=== PATIENT | female | born 1965 | race Hispanic/Latino ===

== ENCOUNTER 2021-10-31 04:41 | Inpatient (IN) | payer OTHER ==
[2021-10-31] MEDS ORDERED: Metoclopramide HCl 10 MG/2 ML VIAL ONE (05:37)
[2021-10-31] MEDS ORDERED: Midazolam HCl 2 mg/2 ml Vial ONE (05:37)
[2021-10-31 06:34] LABS: ALT (SGPT) 36 U/L (8-55); AST (SGOT) 26 U/L (5-34); Alkaline Phosphatase 38 U/L (40-110); Anion Gap 25 mmol/L (10-20); BUN (Urea Nitrogen) 24 mg/dL (9.8-20.1); Bilirubin, Total 0.8 mg/dL (0.2-1.2); Calc. Creatinine Clearance 0 mL/min (70-130); Calcium 9.9 mg/dL (7.8-10.44); Carbon Dioxide 15 mmol/L (22-29); Chloride 103 mmol/L (98-107); Globulin 3.5 g/dL (2.4-3.5); Glucose 363 mg/dL (70-105); Potassium 3.4 mmol/L (3.5-5.1); Protein, Total 8.5 g/dL (6.0-8.3); Sodium 140 mmol/L (136-145)
[2021-10-31 06:35] LABS: Actual Bicarbonate (HCO3v) 17 mEq/L (22-28); Base Excess -5.9 mEq/L (-2.0 to +3.0); Calcium, Ionized (venous) 1.13 mmol/L (1.16-1.32); Chloride (VBG) 102 mmol/L (98-106); Hemoglobin (Hb) 15.8 g/dL (11.7-16.0); Potassium (VBG) 3.31 mmol/L (3.70-5.30); Puncture Site Other Site; RapidComm Collect By lab tech; Sodium 137.2 mmol/L (133-146)
[2021-10-31] MEDS ORDERED: Magnesium 2 GM/50 ML BAG (IN WATER) ONE (06:45)
[2021-10-31] MEDS ORDERED: INSULIN REGULAR IN 0.9 % NACL 100 UNIT/100 ML BAG ONE (06:45)
[2021-10-31] MEDS ORDERED: Potassium Chloride 20 MEQ TAB ONE (06:45)
[2021-10-31] MEDS ORDERED: NS 0.9% w/ 20 MEQ KCL 1,000 ML ONE (06:57)
[2021-10-31] MEDS ORDERED: Sodium Chloride 0.9% 1,000 ML IV PRN ×4 (07:30)
[2021-10-31] MEDS ORDERED: NS 0.9% w/ 20 MEQ KCL 1,000 ML IV PRN ×2 (07:30)
[2021-10-31] MEDS ORDERED: Electrolyte Replacement Protocol 1 EACH IVPB PRN (07:30)
[2021-10-31] MEDS ORDERED: Dextrose 5 %-0.45 % NaCl 1,000 ML IV PRN (07:30)
[2021-10-31] MEDS ORDERED: Potassium Chloride 20 MEQ TAB PO SCH (08:00)
[2021-10-31] MEDS: INSULIN REGULAR IN 0.9 % NACL 100 UNIT in Premix Bag 1 BAG IVPB SCH (08:17)
[2021-10-31] MEDS ORDERED: Morphine 2 MG/ML VIAL SLOW IVP PRN (08:40)
[2021-10-31] MEDS ORDERED: Morphine 4 MG/ML VIAL SLOW IVP SCH (08:45)
[2021-10-31] MEDS ORDERED: Prevnar 13-Val Conj/PF 0.5 ML SYRINGE IM ONE (08:45)
[2021-10-31 08:58] LABS: Anion Gap 25 mmol/L (10-20); BUN (Urea Nitrogen) 21 mg/dL (9.8-20.1); Calc. Creatinine Clearance 57 mL/min (70-130); Calcium 9.7 mg/dL (7.8-10.44); Carbon Dioxide 14 mmol/L (22-29); Chloride 104 mmol/L (98-107); Glucose 301 mg/dL (70-105); Potassium 4.5 mmol/L (3.5-5.1); Sodium 138 mmol/L (136-145)
[2021-10-31] MEDS: Scopolamine 1.5 mg/72 hour Patch TD SCH (10:06)
[2021-10-31] MEDS: Labetalol HCl 100 MG/20 ML VIAL SLOW IVP PRN (10:42)
[2021-10-31] MEDS: D5 1/2 NS w/20 mEq KCL 1,000 ML IV PRN ×3 (11:23→23:14)
[2021-10-31] MEDS ORDERED: Ondansetron PF 4 MG/2 ML Vial IVP PRN ×2 (11:58→12:04)
[2021-10-31] MEDS ORDERED: Acetaminophen 325 MG TAB PO PRN (11:58)
[2021-10-31 12:39] LABS: Anion Gap 20 mmol/L (10-20); BUN (Urea Nitrogen) 18 mg/dL (9.8-20.1); Calc. Creatinine Clearance 63 mL/min (70-130); Calcium 9.4 mg/dL (7.8-10.44); Carbon Dioxide 17 mmol/L (22-29); Chloride 108 mmol/L (98-107); Glucose 181 mg/dL (70-105); Potassium 5.1 mmol/L (3.5-5.1); Sodium 140 mmol/L (136-145)
[2021-10-31] MEDS: cefTRIAXone\\ROCEPHIN 1 GM in Sodium Chloride 0.9% 100 ML IVPB SCH (14:08)
[2021-10-31] MEDS: Metoclopramide HCl 10 MG/2 ML VIAL IVP SCH ×2 (15:55→21:39)
[2021-10-31] MEDS: Morphine 4 MG/ML VIAL SLOW IVP PRN ×2 (15:56→20:29)
[2021-10-31 16:42] LABS: Anion Gap 16 mmol/L (10-20); BUN (Urea Nitrogen) 16 mg/dL (9.8-20.1); Calc. Creatinine Clearance 72 mL/min (70-130); Calcium 9.1 mg/dL (7.8-10.44); Carbon Dioxide 17 mmol/L (22-29); Chloride 107 mmol/L (98-107); Glucose 182 mg/dL (70-105); Sodium 136 mmol/L (136-145)
[2021-10-31 20:44] LABS: Anion Gap 14 mmol/L (10-20); BUN (Urea Nitrogen) 13 mg/dL (9.8-20.1); Calc. Creatinine Clearance 78 mL/min (70-130); Calcium 9.2 mg/dL (7.8-10.44); Carbon Dioxide 19 mmol/L (22-29); Chloride 107 mmol/L (98-107); Glucose 100 mg/dL (70-105); Potassium 4.2 mmol/L (3.5-5.1); Sodium 136 mmol/L (136-145)
[2021-11-01] MEDS: Morphine 4 MG/ML VIAL SLOW IVP PRN ×5 (00:49→18:51)
[2021-11-01 01:28] LABS: Anion Gap 13 mmol/L (10-20); BUN (Urea Nitrogen) 10 mg/dL (9.8-20.1); Calc. Creatinine Clearance 78 mL/min (70-130); Calcium 8.8 mg/dL (7.8-10.44); Carbon Dioxide 20 mmol/L (22-29); Chloride 110 mmol/L (98-107); Glucose 100 mg/dL (70-105); Sodium 139 mmol/L (136-145)
[2021-11-01] MEDS ORDERED: Dextrose 50% Abboject 50 ML SYRINGE SLOW IVP PRN (02:04)
[2021-11-01] MEDS ORDERED: Dextrose 5% in Water 1,000 ML IV PRN (02:04)
[2021-11-01] MEDS ORDERED: HumaLOG 300 UNITS/3 ML VIAL SC PRN (02:04)
[2021-11-01] MEDS ORDERED: Sodium Chloride 0.45% 1,000 ML IV SCH (03:00)
[2021-11-01] MEDS: Metoclopramide HCl 10 MG/2 ML VIAL IVP SCH ×4 (04:23→21:44)
[2021-11-01 05:03] LABS: #Neutrophils 7.5 10x3/uL (1.5-8.4); %Basophils 0.2 % (0.0-2.0); %Eosinophils 0.3 % (0.0-6.0); %Lymphocytes 22.4 % (18.0-47.0); %Neutrophils 67.7 % (40.0-75.0); Hemoglobin 12.9 g/dL (12.0-15.5); Mean Corpuscular HGB CONC 34.4 g/dL (32.0-36.0); Mean Corpuscular Hemoglobin 29.5 pg (27.0-33.0); Mean Corpuscular Volume 85.8 fl (81.6-98.3); Mean Platelet Volume 9.5 fl (7.4-10.4); Platelet Count 268 10x3/uL (150-450); Red Blood Cell (RBC) Count 4.37 10x6/uL (3.90-5.03); White Blood Cell (WBC) Count 11.1 10x3/uL (3.5-10.5)
[2021-11-01 05:34] LABS: ALT (SGPT) 30 U/L (8-55); AST (SGOT) 32 U/L (5-34); Albumin 4.1 g/dL (3.5-5.0); Alkaline Phosphatase 27 U/L (40-110); Anion Gap 18 mmol/L (10-20); BUN (Urea Nitrogen) 9 mg/dL (9.8-20.1); Bilirubin, Total 0.6 mg/dL (0.2-1.2); Calc. Creatinine Clearance 76 mL/min (70-130); Carbon Dioxide 17 mmol/L (22-29); Chloride 108 mmol/L (98-107); Globulin 3.1 g/dL (2.4-3.5); Glucose 153 mg/dL (70-105); Magnesium 1.8 mg/dL (1.6-2.6); Phosphorus 2.4 mg/dL (2.3-4.7); Protein, Total 7.2 g/dL (6.0-8.3); Sodium 139 mmol/L (136-145)
[2021-11-01] MEDS ORDERED: 1/2 NS w/KCL 20 mEq 1,000 ML IV SCH (06:00)
[2021-11-01] MEDS ORDERED: Magnesium 2 GM/50 ML(in water) 2 GM in Premix Bag 1 BAG IVPB SCH (06:00)
[2021-11-01] MEDS ORDERED: cefTRIAXone\\ROCEPHIN 1 GM VIAL ONE (06:04)
[2021-11-01] MEDS: D5 1/2 NS w/20 mEq KCL 1,000 ML IV SCH ×5 (06:06→22:29)
[2021-11-01 09:30] LABS: Anion Gap 16 mmol/L (10-20); BUN (Urea Nitrogen) 7 mg/dL (9.8-20.1); Calc. Creatinine Clearance 75 mL/min (70-130); Calcium 9.2 mg/dL (7.8-10.44); Carbon Dioxide 17 mmol/L (22-29); Chloride 110 mmol/L (98-107); Glucose 189 mg/dL (70-105); Potassium 5.2 mmol/L (3.5-5.1); Sodium 138 mmol/L (136-145)
[2021-11-01] MEDS: Enoxaparin Sodium 40 MG/0.4 ML SYRINGE SC SCH (09:38)
[2021-11-01] MEDS ORDERED: Iopamidol 300 61% 100 ML VIAL FS ONE (10:30)
[2021-11-01] MEDS: Dextrose 5 %-0.45 % NaCl 1,000 ML IV PRN ×3 (10:39→21:44)
[2021-11-01] MEDS: cefTRIAXone\\ROCEPHIN 1 GM in Sodium Chloride 0.9% 100 ML IVPB SCH (12:17)
[2021-11-01 13:42] LABS: Anion Gap 15 mmol/L (10-20); BUN (Urea Nitrogen) 7 mg/dL (9.8-20.1); Calc. Creatinine Clearance 79 mL/min (70-130); Calcium 9.1 mg/dL (7.8-10.44); Carbon Dioxide 20 mmol/L (22-29); Chloride 106 mmol/L (98-107); Glucose 205 mg/dL (70-105); Sodium 136 mmol/L (136-145)
[2021-11-01] MEDS: Labetalol HCl 100 MG/20 ML VIAL SLOW IVP PRN (15:04)
[2021-11-01] MEDS ORDERED: diphenhydrAMINE 50 MG/ML VIAL IVP SCH (16:00)
[2021-11-01] MEDS ORDERED: methylPREDNISolone Sod Succ 40 MG VIAL IVP SCH (17:30)
[2021-11-01] MEDS ORDERED: Famotidine/PF 20 mg/2ml Vial SLOW IVP SCH (18:00)
[2021-11-01] MEDS: INSULIN REGULAR IN 0.9 % NACL 100 UNIT in Premix Bag 1 BAG IVPB SCH (18:39)
[2021-11-01] MEDS ORDERED: Insulin Regular 300 UNITS/3 ML VIAL SC SCH (18:45)
[2021-11-01] MEDS ORDERED: Insulin Regular 300 UNITS/3 ML VIAL IVP SCH (18:45)
[2021-11-02] MEDS: Morphine 4 MG/ML VIAL SLOW IVP PRN ×5 (00:17→20:06)
[2021-11-02] MEDS: Dextrose 5 %-0.45 % NaCl 1,000 ML IV PRN ×2 (01:06→05:36)
[2021-11-02] MEDS: D5 1/2 NS w/20 mEq KCL 1,000 ML IV SCH ×4 (03:28→15:08)
[2021-11-02] MEDS: Metoclopramide HCl 10 MG/2 ML VIAL IVP SCH ×4 (04:27→21:07)
[2021-11-02 06:59] LABS: Magnesium 1.9 mg/dL (1.6-2.6)
[2021-11-02 08:42] LABS: Anion Gap 18 mmol/L (10-20); BUN (Urea Nitrogen) 5 mg/dL (9.8-20.1); Calc. Creatinine Clearance 83 mL/min (70-130); Calcium 9.6 mg/dL (7.8-10.44); Carbon Dioxide 17 mmol/L (22-29); Chloride 108 mmol/L (98-107); Glucose 109 mg/dL (70-105); Potassium 4.4 mmol/L (3.5-5.1); Sodium 139 mmol/L (136-145)
[2021-11-02] MEDS: Enoxaparin Sodium 40 MG/0.4 ML SYRINGE SC SCH (09:11)
[2021-11-02] MEDS ORDERED: Magnesium 2 GM/50 ML(in water) 2 GM in Premix Bag 1 BAG IVPB SCH (09:15)
[2021-11-02] MEDS: cefTRIAXone\\ROCEPHIN 1 GM in Sodium Chloride 0.9% 100 ML IVPB SCH (12:11)
[2021-11-02] MEDS: cloNIDine 0.1 MG TAB PO PRN (14:34)
[2021-11-02 15:13] LABS: Anion Gap 15 mmol/L (10-20); BUN (Urea Nitrogen) 4 mg/dL (9.8-20.1); Calc. Creatinine Clearance 82 mL/min (70-130); Calcium 9.2 mg/dL (7.8-10.44); Carbon Dioxide 20 mmol/L (22-29); Chloride 105 mmol/L (98-107); Glucose 153 mg/dL (70-105); Potassium 3.6 mmol/L (3.5-5.1); Sodium 136 mmol/L (136-145)
[2021-11-02] MEDS ORDERED: diphenhydrAMINE 25 MG CAP PO PRN (16:22)
[2021-11-02] MEDS ORDERED: Dextrose 5% in Water 1,000 ML IV PRN (16:24)
[2021-11-02] MEDS ORDERED: Dextrose 50% Abboject 50 ML SYRINGE SLOW IVP PRN (16:24)
[2021-11-02] MEDS ORDERED: Lantus 1000 UNITS/10 ML VIAL SC SCH (16:27)
[2021-11-02] MEDS: HumaLOG 300 UNITS/3 ML VIAL SC PRN (21:16)
[2021-11-03] MEDS: cloNIDine 0.1 MG TAB PO PRN (00:12)
[2021-11-03] MEDS: Morphine 4 MG/ML VIAL SLOW IVP PRN ×2 (01:09→08:23)
[2021-11-03] MEDS: Metoclopramide HCl 10 MG/2 ML VIAL IVP SCH ×4 (04:10→20:18)
[2021-11-03 04:46] LABS: Anion Gap 17 mmol/L (10-20); BUN (Urea Nitrogen) 5 mg/dL (9.8-20.1); Calc. Creatinine Clearance 78 mL/min (70-130); Carbon Dioxide 18 mmol/L (22-29); Chloride 108 mmol/L (98-107); Glucose 191 mg/dL (70-105); Magnesium 1.8 mg/dL (1.6-2.6); Potassium 4.8 mmol/L (3.5-5.1); Sodium 138 mmol/L (136-145)
[2021-11-03] MEDS ORDERED: Magnesium 2 GM/50 ML(in water) 2 GM in Premix Bag 1 BAG IVPB SCH (05:30)
[2021-11-03] MEDS: Carvedilol 25 MG TAB PO SCH (05:53)
[2021-11-03] MEDS: HumaLOG 300 UNITS/3 ML VIAL SC PRN ×3 (08:08→17:56)
[2021-11-03] MEDS: Enoxaparin Sodium 40 MG/0.4 ML SYRINGE SC SCH (08:10)
[2021-11-03] MEDS: Lantus 1000 UNITS/10 ML VIAL SC SCH ×2 (08:10→20:20)
[2021-11-03] MEDS ORDERED: Atorvastatin Calcium 40 MG TAB PO SCH (09:00)
[2021-11-03] MEDS: Scopolamine 1.5 mg/72 hour Patch TD SCH (10:29)
[2021-11-03] MEDS: cefTRIAXone\\ROCEPHIN 1 GM in Sodium Chloride 0.9% 100 ML IVPB SCH (11:26)
[2021-11-03] MEDS: HYDROcodone/Acetaminophen 5/325 mg Tablet PO PRN ×2 (14:31→17:54)
[2021-11-03] MEDS: Labetalol HCl 100 MG/20 ML VIAL SLOW IVP PRN (20:31)
[2021-11-04] MEDS: HYDROcodone/Acetaminophen 5/325 mg Tablet PO PRN ×5 (00:36→21:18)
[2021-11-04] MEDS: cloNIDine 0.1 MG TAB PO PRN (03:57)
[2021-11-04] MEDS: Metoclopramide HCl 10 MG/2 ML VIAL IVP SCH ×4 (04:00→21:10)
[2021-11-04 05:26] LABS: Anion Gap 16 mmol/L (10-20); BUN (Urea Nitrogen) 8 mg/dL (9.8-20.1); Calc. Creatinine Clearance 80 mL/min (70-130); Calcium 9.3 mg/dL (7.8-10.44); Carbon Dioxide 22 mmol/L (22-29); Chloride 105 mmol/L (98-107); Glucose 145 mg/dL (70-105); Magnesium 1.8 mg/dL (1.6-2.6); Potassium 3.7 mmol/L (3.5-5.1); Sodium 139 mmol/L (136-145)
[2021-11-04] MEDS ORDERED: Magnesium 2 GM/50 ML(in water) 2 GM in Premix Bag 1 BAG IVPB SCH (05:45)
[2021-11-04] MEDS: Enoxaparin Sodium 40 MG/0.4 ML SYRINGE SC SCH (09:13)
[2021-11-04] MEDS: Carvedilol 25 MG TAB PO SCH (09:13)
[2021-11-04] MEDS: Lantus 1000 UNITS/10 ML VIAL SC SCH ×2 (09:14→21:11)
[2021-11-04] MEDS: cefTRIAXone\\ROCEPHIN 1 GM in Sodium Chloride 0.9% 100 ML IVPB SCH (13:12)
[2021-11-04] MEDS: HumaLOG 300 UNITS/3 ML VIAL SC PRN (13:13)
[2021-11-04] MEDS: Losartan Potassium 50 MG TAB PO SCH (16:39)
[2021-11-04] MEDS ORDERED: Bisacodyl 5 MG TAB PO SCH (17:45)
[2021-11-04] MEDS: Atorvastatin Calcium 40 MG TAB PO SCH (21:10)
[2021-11-05] MEDS: HYDROcodone/Acetaminophen 5/325 mg Tablet PO PRN ×4 (04:27→22:33)
[2021-11-05] MEDS: Metoclopramide HCl 10 MG/2 ML VIAL IVP SCH ×2 (04:27→11:13)
[2021-11-05] MEDS: cloNIDine 0.1 MG TAB PO PRN (04:36)
[2021-11-05 04:47] LABS: #Eosinphils 0.3 10x3/uL (0.0-0.5); #Monocytes 0.5 10x3/uL (0.0-1.1); #Neutrophils 3.2 10x3/uL (1.5-8.4); %Basophils 0.3 % (0.0-2.0); %Eosinophils 3.7 % (0.0-6.0); %Lymphocytes 40.6 % (18.0-47.0); %Monocytes 7.5 % (0.0-10.0); %Neutrophils 47.8 % (40.0-75.0); Hemoglobin 13.1 g/dL (12.0-15.5); Mean Corpuscular HGB CONC 35.5 g/dL (32.0-36.0); Mean Corpuscular Volume 81.8 fl (81.6-98.3); Mean Platelet Volume 8.9 fl (7.4-10.4); Platelet Count 304 10x3/uL (150-450); RBC Distribution Width 12.2 % (11.5-14.5); Red Blood Cell (RBC) Count 4.51 10x6/uL (3.90-5.03); White Blood Cell (WBC) Count 6.7 10x3/uL (3.5-10.5)
[2021-11-05 05:03] LABS: Anion Gap 18 mmol/L (10-20); BUN (Urea Nitrogen) 10 mg/dL (9.8-20.1); Calc. Creatinine Clearance 76 mL/min (70-130); Calcium 9.5 mg/dL (7.8-10.44); Carbon Dioxide 21 mmol/L (22-29); Chloride 104 mmol/L (98-107); Glucose 150 mg/dL (70-105); Potassium 3.7 mmol/L (3.5-5.1); Sodium 139 mmol/L (136-145)
[2021-11-05] MEDS: Carvedilol 25 MG TAB PO SCH (08:36)
[2021-11-05] MEDS: Enoxaparin Sodium 40 MG/0.4 ML SYRINGE SC SCH (08:47)
[2021-11-05] MEDS: Lantus 1000 UNITS/10 ML VIAL SC SCH (10:16)
[2021-11-05] MEDS: HumaLOG 300 UNITS/3 ML VIAL SC PRN ×3 (10:18→20:54)
[2021-11-05] MEDS ORDERED: ALPRAZolam 0.25 MG TAB PO SCH ×2 (12:15→22:30)
[2021-11-05] MEDS: cefTRIAXone\\ROCEPHIN 1 GM in Sodium Chloride 0.9% 100 ML IVPB SCH (12:41)
[2021-11-05 13:40] LABS: Hemoglobin A1c 10.3 % (4.0-6.0)
[2021-11-05] MEDS ORDERED: Dextrose 10% in Water 250 ML IVPB SCH (15:45)
[2021-11-05 16:07] LABS: Actual Bicarbonate (HCO3a) 23.5 mEq/L (22-28); Base Excess (BEa) -1.9 mEq/L (-2.0 to +3.0); CO2 Tension 42.6 mmHg (35.0-45.0); Calcium, Ionized (arterial) 1.24 mmol/L (1.12-1.30); Carboxyhemoglobin (COHb) 0.3 gm% (0.0-3.0); O2 Tension (PaO2), arterial 446.9 mmHg (80.0-100.0); Potassium - ABG Lab 2.9 mmol/L (3.70-5.30); Puncture Site LRA; pH, Arterial 7.36 (7.35-7.45)
[2021-11-05 17:20] LABS: Anion Gap 16 mmol/L (10-20); BUN (Urea Nitrogen) 13 mg/dL (9.8-20.1); Calc. Creatinine Clearance 79 mL/min (70-130); Calcium 10.1 mg/dL (7.8-10.44); Carbon Dioxide 22 mmol/L (22-29); Chloride 99 mmol/L (98-107); Glucose 255 mg/dL (70-105); Potassium 3.4 mmol/L (3.5-5.1); Sodium 134 mmol/L (136-145)
[2021-11-05] MEDS: Losartan Potassium 50 MG TAB PO SCH (18:05)
[2021-11-05] MEDS ORDERED: Potassium Chloride 20 MEQ TAB PO SCH (20:00)
[2021-11-05] MEDS: Ondansetron PF 4 MG/2 ML Vial IVP PRN (20:45)
[2021-11-05] MEDS: Atorvastatin Calcium 40 MG TAB PO SCH (20:52)
[2021-11-05 20:56] LABS: Anion Gap 16 mmol/L (10-20); BUN (Urea Nitrogen) 12 mg/dL (9.8-20.1); Calc. Creatinine Clearance 83 mL/min (70-130); Calcium 9.9 mg/dL (7.8-10.44); Carbon Dioxide 23 mmol/L (22-29); Chloride 99 mmol/L (98-107); Glucose 205 mg/dL (70-105); Potassium 3.8 mmol/L (3.5-5.1); Sodium 134 mmol/L (136-145)
[2021-11-06 00:43] LABS: Anion Gap 16 mmol/L (10-20); BUN (Urea Nitrogen) 11 mg/dL (9.8-20.1); Calc. Creatinine Clearance 83 mL/min (70-130); Calcium 10.2 mg/dL (7.8-10.44); Carbon Dioxide 24 mmol/L (22-29); Chloride 99 mmol/L (98-107); Glucose 156 mg/dL (70-105); Potassium 3.8 mmol/L (3.5-5.1); Sodium 135 mmol/L (136-145)
[2021-11-06] MEDS: HYDROcodone/Acetaminophen 5/325 mg Tablet PO PRN ×3 (02:13→21:39)
[2021-11-06] MEDS: Metoclopramide HCl 10 MG/2 ML VIAL IVP SCH ×5 (02:14→21:39)
[2021-11-06] MEDS: Lantus 1000 UNITS/10 ML VIAL SC SCH ×2 (02:15→09:21)
[2021-11-06 04:17] LABS: Anion Gap 17 mmol/L (10-20); BUN (Urea Nitrogen) 10 mg/dL (9.8-20.1); Calc. Creatinine Clearance 80 mL/min (70-130); Calcium 9.8 mg/dL (7.8-10.44); Carbon Dioxide 23 mmol/L (22-29); Chloride 101 mmol/L (98-107); Glucose 136 mg/dL (70-105); Magnesium 1.6 mg/dL (1.6-2.6); Potassium 4.1 mmol/L (3.5-5.1); Sodium 137 mmol/L (136-145)
[2021-11-06] MEDS ORDERED: Magnesium 2 GM/50 ML(in water) 2 GM in Premix Bag 1 BAG IVPB SCH (05:30)
[2021-11-06] MEDS: Ondansetron PF 4 MG/2 ML Vial IVP PRN ×3 (05:49→17:38)
[2021-11-06] MEDS: Carvedilol 25 MG TAB PO SCH (07:58)
[2021-11-06] MEDS: Enoxaparin Sodium 40 MG/0.4 ML SYRINGE SC SCH (07:58)
[2021-11-06] MEDS: cefTRIAXone\\ROCEPHIN 1 GM in Sodium Chloride 0.9% 100 ML IVPB SCH (11:22)
[2021-11-06] MEDS: HumaLOG 300 UNITS/3 ML VIAL SC PRN ×2 (11:57→21:54)
[2021-11-06] MEDS: Losartan Potassium 50 MG TAB PO SCH (15:45)
[2021-11-06] MEDS: Atorvastatin Calcium 40 MG TAB PO SCH (21:39)
[2021-11-07] MEDS: Metoclopramide HCl 10 MG/2 ML VIAL IVP SCH ×4 (03:47→23:50)
[2021-11-07] MEDS: Ondansetron PF 4 MG/2 ML Vial IVP PRN ×3 (03:47→20:56)
[2021-11-07] MEDS: HYDROcodone/Acetaminophen 5/325 mg Tablet PO PRN ×4 (03:47→16:19)
[2021-11-07 04:48] LABS: Anion Gap 17 mmol/L (10-20); BUN (Urea Nitrogen) 12 mg/dL (9.8-20.1); Calc. Creatinine Clearance 68 mL/min (70-130); Calcium 9.5 mg/dL (7.8-10.44); Carbon Dioxide 21 mmol/L (22-29); Chloride 104 mmol/L (98-107); Glucose 184 mg/dL (70-105); Potassium 4.1 mmol/L (3.5-5.1); Sodium 138 mmol/L (136-145)
[2021-11-07 08:00] VITALS: BMI 22.6
[2021-11-07] MEDS: Carvedilol 25 MG TAB PO SCH (08:53)
[2021-11-07] MEDS: Enoxaparin Sodium 40 MG/0.4 ML SYRINGE SC SCH (08:54)
[2021-11-07] MEDS: HumaLOG 300 UNITS/3 ML VIAL SC PRN (12:43)
[2021-11-07] MEDS: Losartan Potassium 50 MG TAB PO SCH (16:19)
[2021-11-07 16:59] LABS: ALT (SGPT) 40 U/L (8-55); AST (SGOT) 27 U/L (5-34); Albumin 4.2 g/dL (3.5-5.0); Alkaline Phosphatase 33 U/L (40-110); Anion Gap 15 mmol/L (10-20); BUN (Urea Nitrogen) 13 mg/dL (9.8-20.1); Bilirubin, Total 0.3 mg/dL (0.2-1.2); Calc. Creatinine Clearance 70 mL/min (70-130); Calcium 9.8 mg/dL (7.8-10.44); Carbon Dioxide 24 mmol/L (22-29); Chloride 98 mmol/L (98-107); Globulin 3.1 g/dL (2.4-3.5); Glucose 216 mg/dL (70-105); Lipase 188 U/L (8-78); Potassium 3.9 mmol/L (3.5-5.1); Protein, Total 7.3 g/dL (6.0-8.3); Sodium 133 mmol/L (136-145)
[2021-11-07] MEDS: HYDROcodone/Acetaminophen 7.5/325 mg Tablet PO PRN (20:57)
[2021-11-07] MEDS: Atorvastatin Calcium 40 MG TAB PO SCH (20:57)
[2021-11-07] MEDS: cloNIDine 0.1 MG TAB PO PRN (21:19)
[2021-11-08] MEDS: HYDROcodone/Acetaminophen 7.5/325 mg Tablet PO PRN ×2 (05:15→14:35)
[2021-11-08] MEDS: Metoclopramide HCl 10 MG/2 ML VIAL IVP SCH ×2 (05:15→08:13)
[2021-11-08] MEDS: Ondansetron PF 4 MG/2 ML Vial IVP PRN ×2 (05:15→14:34)
[2021-11-08 05:22] LABS: #Eosinphils 0.2 10x3/uL (0.0-0.5); #Monocytes 0.7 10x3/uL (0.0-1.1); %Basophils 0.4 % (0.0-2.0); %Eosinophils 2.6 % (0.0-6.0); %Lymphocytes 46.1 % (18.0-47.0); %Monocytes 9.3 % (0.0-10.0); %Neutrophils 41.3 % (40.0-75.0); Mean Corpuscular Hemoglobin 29.2 pg (27.0-33.0); Mean Corpuscular Volume 81.1 fl (81.6-98.3); Mean Platelet Volume 9.4 fl (7.4-10.4); Platelet Count 320 10x3/uL (150-450); RBC Distribution Width 12.5 % (11.5-14.5); Red Blood Cell (RBC) Count 4.45 10x6/uL (3.90-5.03); White Blood Cell (WBC) Count 7.2 10x3/uL (3.5-10.5)
[2021-11-08 05:29] LABS: Anion Gap 16 mmol/L (10-20); BUN (Urea Nitrogen) 10 mg/dL (9.8-20.1); Calc. Creatinine Clearance 73 mL/min (70-130); Calcium 9.3 mg/dL (7.8-10.44); Carbon Dioxide 23 mmol/L (22-29); Chloride 104 mmol/L (98-107); Glucose 209 mg/dL (70-105); Magnesium 1.7 mg/dL (1.6-2.6); Potassium 3.8 mmol/L (3.5-5.1); Sodium 139 mmol/L (136-145)
[2021-11-08] MEDS ORDERED: Magnesium 2 GM/50 ML(in water) 2 GM in Premix Bag 1 BAG IVPB SCH (06:00)
[2021-11-08] MEDS: Enoxaparin Sodium 40 MG/0.4 ML SYRINGE SC SCH (09:11)
[2021-11-08] MEDS: Carvedilol 25 MG TAB PO SCH (09:11)
[2021-11-08] MEDS: HumaLOG 300 UNITS/3 ML VIAL SC PRN (11:27)
[2021-11-08 11:39] VITALS: BP 147/73; TEMP 96.7
== END 2021-11-07 15:00 | disposition home or self-care (01) | DRG 637 ==
LOC: CSHERS 04:41 → CSHICU 07:16 → CSHTELE 11-03 16:57 → CSHIMCU 11-05 16:10 → CSHTELE 11-06 15:56
PROVIDERS: ADMIT Hospitalist; ATTEND Internal Medicine
DX: E10.10 Type 1 diabetes mellitus with ketoacidosis without coma (principal); G93.41 Metabolic encephalopathy; N39.0 Urinary tract infection, site not specified; R33.9 Retention of urine, unspecified; I10 Essential (primary) hypertension; F41.9 Anxiety disorder, unspecified; E10.649 Type 1 diabetes mellitus with hypoglycemia without coma; E10.43 Type 1 diabetes mellitus with diabetic autonomic (poly)neuropathy; K31.84 Gastroparesis; Z88.8 Allergy status to other drugs, medicaments and biological substances; Z98.890 Other specified postprocedural states; Z98.891 History of uterine scar from previous surgery; Z90.49 Acquired absence of other specified parts of digestive tract; Z79.4 Long term (current) use of insulin; Z79.899 Other long term (current) drug therapy; Z79.51 Long term (current) use of inhaled steroids; Z91.041 Radiographic dye allergy status
CPT/HCPCS: 36415; 36416; 36600; 70450; 71045; 74018; 74177; 76770; 80048; 82010; 82805; 83036; 83690; 83735; 84100; 85025; 87086; 93005; 93010; 94760; 96365; 96367; 96368; 96375; J0696; J1200; J1650; J1815; J2250; J2270; J2405; J2765; J2920; J3475; J3480; J3490; J7042; J7999; Q9967; S0028